=== PATIENT | female | born 1985 | race Caucasian/White ===

== ENCOUNTER 2022-05-07 09:11 | Day surgery (SDC) | payer OTHER ==
[~2022-05-07] VITALS: Ht 157.5 cm; Wt 67.6 kg
[2022-05-07] MEDS ORDERED: fentaNYL citrate 0.05 MG/ML VIAL ONE (10:00)
[2022-05-07] MEDS ORDERED: diphenhydrAMINE 50 MG/ML VIAL ONE (10:00)
[2022-05-07] MEDS ORDERED: LIDOCAINE 2% 100 MG/5 ML UJET TP ONE (10:01)
[2022-05-07] MEDS ORDERED: MIDAZOLAM 5 MG/5 ML VIAL ONE (10:01)
[2022-05-07] MEDS ORDERED: MIDAZOLAM 5 MG/5 ML VIAL IV ONE (12:50)
[2022-05-07] MEDS ORDERED: diphenhydrAMINE 50 MG/ML VIAL IVP ONE (12:50)
[2022-05-07] MEDS ORDERED: fentaNYL citrate 0.05 MG/ML VIAL IVP ONE (12:50)
== END 2022-05-07 11:50 | disposition home or self-care (01) ==
LOC: MDS 09:11 → MMU 09:11 → MDS 11:50
PROVIDERS: ATTEND Internal Medicine Gastroenterology
DX: K62.5 Hemorrhage of anus and rectum (principal); Z20.822 Contact with and (suspected) exposure to COVID-19; Z79.899 Other long term (current) drug therapy
CPT/HCPCS: 45378; 81025; 87426; J1200; J2250; J3010